=== PATIENT | male | born 1980 | race Caucasian/White ===

== ENCOUNTER 2021-09-16 18:53 | Emergency (ER) | payer SELFPAY | END 2021-09-16 20:18 | disposition home or self-care (01) | LOC: ER1 18:53 | DX: S00.33XA Contusion of nose, initial encounter (principal); W22.8XXA Striking against or struck by other objects, initial encounter; Z88.0 Allergy status to penicillin | CPT/HCPCS: 70160; 90471; 90715; 99283 ==